=== PATIENT | male | born 1960 | race Caucasian/White ===

== ENCOUNTER 2020-07-31 22:10 | Emergency (ER) | payer OTHER ==
--- NOTE | 2020-07-31 22:17 | ED Physician Documentation ---
History of Present Illness - Stated complaint Stated Complaint: BACK PX/MALE - History obtained from History obtained from: Patient - Additonal information Additional information: Patient is a 60-year-old male presents with left-sided flank pain and dark urine. Reports he has a history of kidney stones denies any fevers or syncope. Review of Systems Constitutional: reports: Reviewed and negative Eyes: reports: Reviewed and negative Ears: reports: Reviewed and negative Nose: reports: Reviewed and negative Throat: reports: Reviewed and negative Cardiac: reports: Reviewed and negative Respiratory: reports: Reviewed and negative GI: reports: Reviewed and negative : reports: Other (left sided flank pain.) Skin: reports: Reviewed and negative Musculoskeletal: reports: Reviewed and negative Neurologic: reports: Reviewed and negative Psychiatric: reports: Reviewed and negative Endocrine: reports: Reviewed and negative Immunocompromised: reports: Reviewed and negative PD PAST MEDICAL HISTORY - Past Surgical History Past Surgical History: No - Present Medications Home Medications: Ambulatory Orders Medication Instructions Recorded Confirmed Butalb/Acetaminophen/Caffeine 1 each PO Q6HR PRN #10 capsule 04/12/15 [Fioricet 50-300-40 mg Capsule] Sumatriptan Inj [Imitrex Inj] 6 mg SQ DAILY PRN 04/12/15 04/12/15 Hydrocodone/Acetaminophen [[place] 1 each PO Q6HR PRN #14 tablet 08/01/20 5-325 Tablet] Ondansetron Odt [Zofran Odt] 4 mg TL Q6H PRN #10 tablet 08/01/20 Tamsulosin [Flomax] 0.4 mg PO DAILY 7 Days #7 capsule 08/01/20 - Allergies Allergies/Adverse Reactions: Allergies Allergy/AdvReac Type Severity Reaction Status Date / Time No Known Drug Allergies Allergy Verified 07/31/20 22:19 - Social History Does the pt smoke?: No Smoking Status: Never smoker Does the pt drink ETOH?: No Does the pt have substance abuse?: No - Immunizations Immunizations are current?: Yes - POLST Patient has POLST: No PD ED PE NORMAL - Vitals Vital signs reviewed: Yes - General General: Alert and oriented X 3, No acute distress, Well developed/nourished - HEENT HEENT: Atraumatic, PERRL, Moist mucous membranes - Neck Neck: Supple, no meningeal sign - Cardiac Cardiac: RRR, No murmur, Strong equal pulses - Respiratory Respiratory: No respiratory distress, Clear bilaterally - Abdomen Abdomen: Normal bowel sounds, Soft, Non tender, Non distended, No organomegaly, Other (No midline abdominal pulsatile mass) - Back Back: Other (Positive for left-sided CVA tenderness) - Derm Derm: Warm and dry - Extremities Extremities: No deformity - Neuro Neuro: Alert and oriented X 3, cytopathology technologist 2-12 intact, No motor deficit, No sensory deficit, Normal speech - Psych Psych: Normal mood, Normal affect Results - Vitals Vitals: Vital Signs - 24 hr 07/31/20 07/31/20 07/31/20 22:10 23:26 23:42 Temperature 36.3 C L 36.7 C Heart Rate 54 L 63 57 L Respiratory 18 16 16 Rate Blood Pressure 169/79 H 149/91 H 158/99 H O2 Saturation 98 96 96 08/01/20 08/01/20 08/01/20 00:50 01:10 02:08 Temperature 36.4 C L Heart Rate 73 66 77 Respiratory 16 16 16 Rate Blood Pressure 144/98 H 164/99 H 152/102 H O2 Saturation 95 95 95 08/01/20 08/01/20 02:56 03:15 Temperature 36.6 C 36.5 C Heart Rate 73 70 Respiratory 16 16 Rate Blood Pressure 139/100 H 127/78 O2 Saturation 94 97 Oxygen O2 Source Room air - Labs Labs: Laboratory Tests 07/31/20 07/31/20 07/31/20 22:26 22:30 22:30 WBC 8.9 RBC 5.27 Hgb 16.1 Hct 47.6 MCV 90.3 MCH 30.6 MCHC 33.8 RDW 13.2 Plt Count 174 MPV 10.8 Neut # (Auto) 4.4 Lymph # (Auto) 3.3 Story # (Auto) 0.9 Eos # (Auto) 0.2 Baso # (Auto) 0.1 Absolute Nucleated RBC 0.00 Nucleated RBC % 0.0 Sodium 139 Potassium 3.7 Chloride 101 Carbon Dioxide 28 Anion Gap 10.0 BUN 27 H Creatinine 1.1 Estimated GFR (MDRD) 68 L Glucose 111 H Lactic Acid Calcium 9.6 Total Bilirubin 0.6 AST 27 ALT 35 Alkaline Phosphatase 67 Total Protein 7.2 Albumin 4.4 Globulin 2.8 Albumin/Globulin Ratio 1.6 Lipase 36 Urine Color BROWN Urine Clarity CLOUDY Urine pH 6.5 Ur Specific [place] 1.025 Urine Protein 30 H Urine Glucose (UA) NEGATIVE Urine Ketones 40 H Urine Occult Blood LARGE H Urine Nitrite NEGATIVE Urine Bilirubin NEGATIVE Urine Urobilinogen 0.2 (NORMAL) Ur Leukocyte Esterase NEGATIVE Urine RBC TNTC H Urine WBC 4-5 Ur Squamous Epith Cells NONE SEEN Urine Bacteria Rare Urine Yeast PRESENT Ur Microscopic Review INDICATED Urine Culture Comments NOT INDICATED 07/31/20 22:51 WBC RBC Hgb Hct MCV MCH MCHC RDW Plt Count MPV Neut # (Auto) Lymph # (Auto) Story # (Auto) Eos # (Auto) Baso # (Auto) Absolute Nucleated RBC Nucleated RBC % Sodium Potassium Chloride Carbon Dioxide Anion Gap BUN Creatinine Estimated GFR (MDRD) Glucose Lactic Acid 0.9 Calcium Total Bilirubin AST ALT Alkaline Phosphatase Total Protein Albumin Globulin Albumin/Globulin Ratio Lipase Urine Color Urine Clarity Urine pH Ur Specific [place] Urine Protein Urine Glucose (UA) Urine Ketones Urine Occult Blood Urine Nitrite Urine Bilirubin Urine Urobilinogen Ur Leukocyte Esterase Urine RBC Urine WBC Ur Squamous Epith Cells Urine Bacteria Urine Yeast Ur Microscopic Review Urine Culture Comments PD MEDICAL DECISION MAKING - ED course Complexity details: reviewed old records, reviewed results, re-evaluated patient, considered differential (Kidney stone), d/w patient, d/w family ED course: 60-year-old male who presents with history exam consistent for ureterolithiasis imaging shows a 4.3 x 7.3 x 4.6 m stone distal to the left ureter just proximal to the UVJ. Final impression is distal left ureteric stone resulting in moderate left hydroureteronephrosis. Patient's pain is been controlled with IV analgesia antiemetics. He is afebrile with no signs of infection he is able to urinate without complications I did offer to transfer him to a facility with urology however the patient would like to be treated as an outpatient is given referral to urology and a primary care provider also given prepacks for antiemetics and analgesics as well as prescriptions for those and Flomax. Return for worsening pain fevers or any concerns. Departure - Departure Disposition: 01 Home, Self Care Clinical Impression: Kidney stone on left side, Ureterolithiasis Condition: Stable Instructions: ED Stone Renal W Colic Follow-Up: Ana Finn MD [Physician No Access] - Tomorrow Deborah Cabral PA-C [Primary Care Provider] - Tomorrow Prescriptions: Hydrocodone/Acetaminophen [[place] 5-325 Tablet] 1 each PO Q6HR PRN #14 tablet PRN Reason: Pain Tamsulosin [Flomax] 0.4 mg PO DAILY 7 Days #7 capsule Ondansetron Odt [Zofran Odt] 4 mg TL Q6H PRN #10 tablet PRN Reason: Nausea / Vomiting Comments: Hydrate well. Call the urologist and your primary care provider tomorrow. Take pain meds as needed. Discharge Date/Time: 08/01/20 03:26
[2020-07-31 22:30] LABS: BILIRUBIN,URINE NEGATIVE (NEGATIVE); GLUCOSE, URINE (UA) NEGATIVE (NEGATIVE); KETONES,URINE (UA) 40 mg/dL (NEGATIVE); LEUKOCYTE ESTERASE, URINE NEGATIVE (NEGATIVE); NITRITE,URINE NEGATIVE (NEGATIVE); OCCULT BLOOD,URINE LARGE (NEGATIVE); PH,URINE 6.5 PH (5.0-7.5); PROTEIN,URINE 30 mg/dL (NEGATIVE); UROBILINOGEN,URINE 0.2 (NORMAL) E.U./dL (NORMAL)
[2020-07-31 22:34] LABS: BASOPHILS # (AUTO) 0.1 10^3/uL (0.0-0.1); BASOPHILS % (AUTO) 0.6 %; EOSINOPHILS # (AUTO) 0.2 10^3/uL (0.0-0.7); EOSINOPHILS % (AUTO) 2.5 %; HGB - HEMOGLOBIN 16.1 g/dL (14.0-18.0); LYMPHOCYTES # (AUTO) 3.3 10^3/uL (1.5-3.5); LYMPHOCYTES % (AUTO) 37.2 %; MEAN CORPUSCULAR HEMOGLOBIN 30.6 pg (27.0-31.0); MEAN CORPUSCULAR HGB CONC 33.8 g/dL (32.0-36.0); MEAN CORPUSCULAR VOLUME 90.3 fL (80.0-94.0); MEAN PLATELET VOLUME 10.8 fL (7.4-11.4); MONOCYTES # (AUTO) 0.9 10^3/uL (0.0-1.0); MONOCYTES % (AUTO) 9.6 %; NEUTROPHILS # (AUTO) 4.4 10^3/uL (1.5-6.6); NEUTROPHILS % (AUTO) 49.6 %; PLT - PLATELET COUNT 174 10^3/uL (130-450); RED BLOOD COUNT 5.27 10^6/uL (4.70-6.10); RED CELL DISTRIBUTION WIDTH 13.2 % (12.0-15.0); WHITE BLOOD COUNT 8.9 x10^3/uL (4.8-10.8)
[2020-07-31 22:39] LABS: BACTERIA,URINE Rare /HPF (None Seen); CLARITY,URINE CLOUDY (CLEAR); RBC,URINE TNTC /HPF (0-5); SQUAMOUS EPITHELIAL CELL,UR NONE SEEN (<= Few); YEAST,URINE PRESENT
[2020-07-31] MEDS ORDERED: SODIUM CHLORIDE 0.9% 1,000 ML IV STA (22:46)
[2020-07-31] MEDS ORDERED: KETOROLAC 30 MG/ML VIAL IVP STA (22:46)
[2020-07-31] MEDS ORDERED: HYDROmorphone 0.5 MG/0.5 ML SYRINGE IVP STA (22:46)
[2020-07-31] MEDS ORDERED: ONDANSETRON 4 MG/2 ML VIAL IVP STA (22:46)
[2020-07-31 22:47] LABS: ALBUMIN 4.4 g/dL (3.2-5.5); ALBUMIN/GLOBULIN RATIO 1.6 (1.0-2.2); BILIRUBIN,TOTAL 0.6 mg/dL (0.2-1.0); CALCIUM 9.6 mg/dL (8.5-10.3); CREATININE 1.1 mg/dL (0.6-1.2); TOTAL PROTEIN 7.2 g/dL (6.7-8.2)
[2020-08-01] MEDS ORDERED: HYDROmorphone 0.5 MG/0.5 ML SYRINGE IVP STA (01:06)
[2020-08-01] MEDS ORDERED: ONDANSETRON 4 MG/2 ML VIAL IVP STA (01:06)
[2020-08-01] MEDS ORDERED: HYDROcod/ACET 5/325 Prepack 4 PO STA (03:06)
[2020-08-01] MEDS ORDERED: ONDANSETRON ODT 4 MG Prepack 2 TL PRN (03:12)
[2020-08-01 03:22] VITALS: BP 127/78
[2020-08-01] MEDS ORDERED: PROMETHAZINE 25 MG/1 ML VIAL IM STA (03:24)
--- NOTE | 2020-08-01 10:36 | CT Report ---
PROCEDURE: Abdomen/Pelvis WO INDICATIONS: left flank pain TECHNIQUE: Noncontrast 5 mm thick sections acquired from the diaphragms to the symphysis. 5 mm coronal and sagi ttal reformats were then performed. For radiation dose reduction, the following was used: automated exposure control, adjustment of mA and/or kV according to patient size. COMPARISON: None. FINDINGS: Image quality: Excellent. ABDOMEN: Lung bases: Mild dependent atelectasis is seen, right worse than left. Heart size is normal. A small hiatal hernia is incidentally noted. Solid organs: Liver and spleen are normal in size. Gallbladder wall does not appear thickened. P ancreas is normal in contours. No adrenal nodules. There is an obstructing stone seen within the left distal ureter, near the ureterovesicular junction, as on series 3 image 137 and on series 6 image 63, which measures 6 mm craniocaudal. There is associ ated moderate left-sided hydroureter and hydronephrosis. Mild left-sided perinephric fat stranding is seen. Within the right kidney, there is a nonobstructing 1 mm stone seen. No definite left-sided nonobstruc ting stones are seen. Along the posterior aspect of the right kidney laterally, there is a 2.5 cm simple appearing cyst see n. The kidneys demonstrate normal size. Peritoneum and bowel: Unenhanced bowel loops demonstrate normal wall thickness and caliber. No free fluid or air. Nodes and vessels: No retroperitoneal or mesenteric adenopathy by size criteria. Aorta and inferior vena cava are normal in caliber. Miscellaneous: No ventral hernias. PELVIS: Genitourinary: Bladder wall thickness is normal. Miscellaneous: No inguinal hernias or adenopathy. Bones: No suspicious bony lesions. No vertebral body compression fractures. There is focal degener ative change at L5-S1. Milder degenerative changes are seen elsewhere. IMPRESSION: There is a 6 mm obstructing stone seen within the distal left ureter, with associated moderate left-s ided hydroureter and hydronephrosis. Mild left-sided perinephric fat stranding is seen. 1 mm nonobstructing right-sided kidney stone. Incidental note is made of: Small hiatal hernia Simple appearing right renal cyst Focal degenerative change at L5-S1. Note: No significant discrepancy from the preliminary report. Reviewed by: Miguelangel Anders MD on 08/01/2020 9:35 AM TREY Approved by: Miguelangel Anders MD on 08/01/2020 9:35 AM TREY Station ID: [id number]
== END 2020-08-01 03:26 | disposition home or self-care (01) ==
LOC: ED 22:10
DX: N13.2 Hydronephrosis with renal and ureteral calculous obstruction (principal)
CPT/HCPCS: 36415; 74176; 80053; 81001; 83605; 83690; 85025; 96361; 96374; 96375; 96376; 99283; 99285; J1170; 81003; 87086

== ENCOUNTER 2020-09-25 01:25 | Emergency (ER) | payer OTHER ==
[2020-09-25] MEDS ORDERED: KETOROLAC 30 MG/ML VIAL IVP STA (02:34)
[2020-09-25] MEDS ORDERED: SODIUM CHLORIDE 0.9% 1,000 ML IV STA (02:34)
[2020-09-25 02:49] LABS: BASOPHILS % (AUTO) 0.5 %; EOSINOPHILS # (AUTO) 0.2 10^3/uL (0.0-0.7); EOSINOPHILS % (AUTO) 2.1 %; HGB - HEMOGLOBIN 15.3 g/dL (14.0-18.0); LYMPHOCYTES # (AUTO) 2.9 10^3/uL (1.5-3.5); LYMPHOCYTES % (AUTO) 36.3 %; MEAN CORPUSCULAR HEMOGLOBIN 30.3 pg (27.0-31.0); MEAN CORPUSCULAR HGB CONC 33.5 g/dL (32.0-36.0); MEAN CORPUSCULAR VOLUME 90.5 fL (80.0-94.0); MEAN PLATELET VOLUME 11.3 fL (7.4-11.4); MONOCYTES # (AUTO) 0.9 10^3/uL (0.0-1.0); MONOCYTES % (AUTO) 11.7 %; NEUTROPHILS # (AUTO) 3.9 10^3/uL (1.5-6.6); PLT - PLATELET COUNT 181 10^3/uL (130-450); RED BLOOD COUNT 5.05 10^6/uL (4.70-6.10); RED CELL DISTRIBUTION WIDTH 14.3 % (12.0-15.0)
[2020-09-25 03:24] LABS: ALBUMIN 4.2 g/dL (3.2-5.5); ALBUMIN/GLOBULIN RATIO 1.5 (1.0-2.2); BILIRUBIN,TOTAL 0.9 mg/dL (0.2-1.0); CREATININE 1.3 mg/dL (0.6-1.2)
[2020-09-25 03:41] LABS: CALCIUM 9.7 mg/dL (8.5-10.3)
[2020-09-25] MEDS ORDERED: LACTATED RINGERS 1,000 ML IV ONE (03:49)
[2020-09-25] MEDS ORDERED: IOVERSOL 320 100 ML VIAL IVP ONE (04:05)
[2020-09-25] MEDS ORDERED: MORPHINE 2 MG/ML CARPUJECT IVP STA (05:05)
[2020-09-25] MEDS ORDERED: ONDANSETRON 4 MG/2 ML VIAL IVP STA (05:05)
--- NOTE | 2020-09-25 05:08 | ED Physician Documentation ---
History of Present Illness - Stated complaint Stated Complaint: KIDNEY STONE SX - Chief complaint Chief Complaint: Abd Pain - History obtained from History obtained from: Patient - Additonal information Additional information: 60-year-old man with past medical history of migraine headaches, kidney stones in the past, presents with left flank pain radiating to lower abdomen since 11 PM last night. Sharp, intermittent, severe, worse with staying still. Denies fevers, urinary symptoms, vomiting or diarrhea. Some mild nausea associated. This does feel like his prior kidney stones. Review of Systems Ten Systems: 10 systems reviewed and negative Constitutional: denies: Fever, Chills GI: reports: Abdominal Pain, Nausea Musculoskeletal: reports: Back pain PD PAST MEDICAL HISTORY - Past Surgical History Past Surgical History: No - Present Medications Home Medications: Ambulatory Orders Medication Instructions Recorded Confirmed Butalb/Acetaminophen/Caffeine 1 each PO Q6HR PRN #10 capsule 04/12/15 [Fioricet 50-300-40 mg Capsule] Sumatriptan Inj [Imitrex Inj] 6 mg SQ DAILY PRN 04/12/15 04/12/15 Hydrocodone/Acetaminophen [[place] 1 each PO Q6HR PRN #14 tablet 08/01/20 5-325 Tablet] Ondansetron Odt [Zofran Odt] 4 mg TL Q6H PRN #10 tablet 08/01/20 Tamsulosin [Flomax] 0.4 mg PO DAILY 7 Days #7 capsule 08/01/20 Tamsulosin HCl [Flomax] 0.4 mg PO QDAC 14 Days #14 09/25/20 cap.er.24h - Allergies Allergies/Adverse Reactions: Allergies Allergy/AdvReac Type Severity Reaction Status Date / Time No Known Drug Allergies Allergy Verified 09/25/20 02:34 - Social History Does the pt smoke?: No Smoking Status: Never smoker Does the pt drink ETOH?: No Does the pt have substance abuse?: No - Immunizations Immunizations are current?: Yes - POLST Patient has POLST: No PD ED PE NORMAL - Vitals Vital signs reviewed: Yes - General General: Alert and oriented X 3 - HEENT HEENT: Atraumatic, PERRL, EOMI - Neck Neck: Supple, no meningeal sign - Cardiac Cardiac: RRR - Respiratory Respiratory: No respiratory distress, Clear bilaterally - Abdomen Abdomen: Other (discomfort to palpation diffusely) - Male Male : Deferred - Rectal Rectal: Deferred - Back Back: Other (+L CVA ttp) - Derm Derm: Normal color, Warm and dry - Extremities Extremities: No deformity - Neuro Neuro: Alert and oriented X 3 - Psych Psych: Normal mood, Normal affect Results - Vitals Vitals: Vital Signs - 24 hr 09/25/20 09/25/20 09/25/20 01:36 03:56 05:00 Temperature 36.3 C L Heart Rate 78 80 88 Respiratory 20 18 16 Rate Blood Pressure 167/96 H 154/74 H 164/94 H O2 Saturation 100 100 99 Oxygen O2 Source Room air - Labs Labs: Laboratory Tests 09/25/20 09/25/20 09/25/20 02:34 02:34 05:05 WBC 8.0 RBC 5.05 Hgb 15.3 Hct 45.7 MCV 90.5 MCH 30.3 MCHC 33.5 RDW 14.3 Plt Count 181 MPV 11.3 Neut # (Auto) 3.9 Lymph # (Auto) 2.9 [place] # (Auto) 0.9 Eos # (Auto) 0.2 Baso # (Auto) 0.0 Absolute Nucleated RBC 0.00 Nucleated RBC % 0.0 Sodium 139 Potassium 3.5 Chloride 103 Carbon Dioxide 23 Anion Gap 13.0 BUN 22 H Creatinine 1.3 H Estimated GFR (MDRD) 56 L Glucose 124 H Calcium 9.7 Total Bilirubin 0.9 AST 46 H ALT 61 H Alkaline Phosphatase 67 Total Protein 7.0 Albumin 4.2 Globulin 2.8 Albumin/Globulin Ratio 1.5 Lipase 31 Urine Color YELLOW Urine Clarity CLEAR Urine pH 6.0 Ur Specific [place] 1.020 Urine Protein NEGATIVE Urine Glucose (UA) NEGATIVE Urine Ketones 40 H Urine Occult Blood TRACE-INTA Urine Nitrite NEGATIVE Urine Bilirubin NEGATIVE Urine Urobilinogen 0.2 (NORMAL) Ur Leukocyte Esterase NEGATIVE Ur Microscopic Review NOT INDICATED Urine Culture Comments NOT INDICATED PD MEDICAL DECISION MAKING - ED course Complexity details: re-evaluated patient, d/w patient ED course: 60-year-old man Presents with kidney stones with moderate hydronephrosis, mild RONAL, no urinary tract infection on urinalysis. Discussed results with patient who would prefer to follow-up outpatient urology and take [id number] medicine for pain at home. He understands the need for hydration and urgent follow-up since he is unlikely to pass the stone on his own. Strict return precautions given. Departure - Departure Disposition: 01 Home, Self Care Clinical Impression: Hydronephrosis, RONAL (acute kidney injury), Kidney stone on left side Condition: Good Instructions: Hydronephrosis Ch, Kidney Stones Prescriptions: Tamsulosin HCl [Flomax] 0.4 mg PO QDAC 14 Days #14 cap.er.24h Comments: You have been seen in the emergency department for kidney stones. Your CAT scan showed moderate hydronephrosis of the left kidney which means that you are experiencing back up of fluid due to the obstructing kidney stone on the left ureter. Your urinalysis showed no signs of infection. You also have very mild acute kidney injury on your bloodwork, that will improve if you hydrate and follow-up with urology for kidney stone removal. It is very important to hydrate a lot. Make an appointment Sunday to be evaluated for kidney stone removal. Take Tylenol/acetaminophen 650 mg every 6 hours as needed for pain, alternating with ibuprofen/advil/motrin 600 mg as needed every 6 hours for pain. Return to the ED for any new or worsening symptoms. [facility] [place], [place] Closed ? Opens 8AM Mon
[2020-09-25 05:47] LABS: BILIRUBIN,URINE NEGATIVE (NEGATIVE); GLUCOSE, URINE (UA) NEGATIVE (NEGATIVE); KETONES,URINE (UA) 40 mg/dL (NEGATIVE); LEUKOCYTE ESTERASE, URINE NEGATIVE (NEGATIVE); NITRITE,URINE NEGATIVE (NEGATIVE); OCCULT BLOOD,URINE TRACE-INTA (NEGATIVE); PROTEIN,URINE NEGATIVE (NEGATIVE); UROBILINOGEN,URINE 0.2 (NORMAL) E.U./dL (NORMAL)
[2020-09-25 05:49] LABS: CLARITY,URINE CLEAR (CLEAR)
[2020-09-25 06:04] VITALS: BP 155/84
--- NOTE | 2020-09-25 09:45 | CT Report ---
PROCEDURE: Abdomen/Pelvis W INDICATIONS: abdominal pain CONTRAST: IV CONTRAST: Optiray 320 ml: 100 PO CONTRAST: *NO PO CONTRAST TECHNIQUE: After the administration of nonionic IV contrast, 5 mm thick sections acquired from the diaphragms to the symphysis. 5 mm thick coronal and sagittal reformats were acquired. For radiation dose reducti on, the following was used: automated exposure control, adjustment of mA and/or kV according to shubham ent size. COMPARISON: 08/01/2020 FINDINGS: Image quality: Excellent. ABDOMEN: Lung bases: Lung bases are clear. Heart size is normal. A small hiatal hernia is incidentally note d. Solid organs: Liver and spleen are normal in size and enhancement. Gallbladder wall does not appear thickened. Biliary system is non dilated. Pancreas enhances normally. No adrenal nodules. Kidneys demonstrate normal size and enhancement. Simple appearing bilateral renal cysts are seen. 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 There is at least moderate left-sided hydr onephrosis. Left-sided perinephric stranding can be seen. At the left ureterovesicular junction, ther e is an obstructing stone seen and measures 6 mm. Peritoneum and bowel: Bowel loops demonstrate normal wall thickness and caliber. No free fluid or a ir. A normal appendix is incidentally noted. Nodes and vessels: No retroperitoneal or mesenteric adenopathy by size criteria. Aorta and inferior vena cava are normal in size. Miscellaneous: A mild fat-containing periumbilical hernia is seen. PELVIS: Genitourinary: Bladder wall thickness is normal. Miscellaneous: No inguinal adenopathy. Bilateral fat-containing inguinal hernias are seen, left wors e than right. Bones: No suspicious bony lesions. No vertebral body compression fractures. Focal L5-S1 degenerativ e change is seen. Milder degenerative changes are seen elsewhere. IMPRESSION: The previously seen distal left ureteral stone has migrated more distally and is now see n at the left ureterovesicular junction. There is moderate associated left-sided hydroureter and hydr onephrosis, perinephric fat stranding. 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 Incidental note is made of: Small hiatal hernia Simple appearing bilateral renal cysts Mild fat-containing periumbilical hernia Normal appendix Focal L5-S1 degenerative change Fat-containing inguinal hernias Note: No significant discrepancy from the preliminary report. Reviewed by: Miguelangel Anders MD on 09/25/2020 8:44 AM AKST Approved by: Miguelangel Anders MD on 09/25/2020 8:44 AM AKST Station ID: [id number]
== END 2020-09-25 06:03 | disposition home or self-care (01) ==
LOC: ED 01:25
DX: N13.2 Hydronephrosis with renal and ureteral calculous obstruction (principal); N17.9 Acute kidney failure, unspecified
CPT/HCPCS: 36415; 74177; 80053; 81003; 83690; 85025; 96374; 96375; 99284; 99285; J7120; Q9967; 81001; 87086

== ENCOUNTER 2021-08-11 21:40 | Outpatient (CLI) | payer OTHER | END 2021-08-11 21:41 | disposition critical access hospital (66) | LOC: EMS 21:40 | DX: R55 Syncope and collapse (principal); R51.9 Headache, unspecified | CPT/HCPCS: A0425; A0429 ==

== ENCOUNTER 2021-08-11 22:00 | Emergency (ER) | payer OTHER ==
--- NOTE | 2021-08-11 22:15 | ED Physician Documentation ---
PD HPI SYNCOPE - Stated complaint Stated Complaint: SYNCOPE - Chief complaint Chief Complaint: Neuro - History obtained from History obtained from: Patient - History of Present Illness Witnessed: Witnessed ( heard him fall and saw him not moving, eyes rolled back, but then roused in 20-30 seconds. Tender back of head. No other pains.) Preceding symptoms: Light headed. No: Headache, Chest pain, Abdominal pain Associated symptoms: No: Chest pain, Nausea / vomiting, Abdominal pain Contributing factors: Just stood up (he was in warm/hot bath and got up to walk down [place]. He felt lightheaded but thought he could get to other room. He then remembers awakening on floor, by his side. Bump on back of head. No chest/abd pain.). No: Recent med change, Decreased PO intake, Noxious stimulae Injury occurred: Head injury (bump back of head with fainting/fall. He had some vinyl jade in box fall from shelf and hit front of head earlier, but no residual headache nor lightheaded from that, per patient.) Similar symptoms before: Has not had sx before Review of Systems Constitutional: denies: Fever, Chills Nose: denies: Rhinorrhea / runny nose, Congestion Throat: denies: Sore throat Respiratory: denies: Cough GI: denies: Nausea, Vomiting, Diarrhea, Bloody / black stool Skin: denies: Abrasion (s), Laceration (s) Musculoskeletal: denies: Neck pain, Back pain Neurologic: denies: Focal weakness, Numbness, Altered mental status (normal mentation once awoke.) PD PAST MEDICAL HISTORY - Past Surgical History Past Surgical History: No - Present Medications Home Medications: Ambulatory Orders Medication Instructions Recorded Confirmed SUMAtriptan [Imitrex] 50 mg PO PRN 08/11/21 - Allergies Allergies/Adverse Reactions: Allergies Allergy/AdvReac Type Severity Reaction Status Date / Time No Known Drug Allergies Allergy Verified 08/11/21 22:11 - Social History Does the pt smoke?: No Smoking Status: Never smoker Does the pt drink ETOH?: No Does the pt have substance abuse?: No - Immunizations Immunizations are current?: Yes - POLST Patient has POLST: No PD ED PE NORMAL - Vitals Vital signs reviewed: Yes - General General: Alert and oriented X 3, No acute distress, Well developed/nourished - HEENT HEENT: PERRL, EOMI, Pharynx benign, Other (upper occiput with mild swelling and tender. No lacs. ) - Neck Neck: Supple, no meningeal sign, No adenopathy - Cardiac Cardiac: RRR, No murmur - Respiratory Respiratory: Clear bilaterally - Abdomen Abdomen: Soft, Non tender - Back Back: No spinal TTP - Derm Derm: Normal color, Warm and dry - Extremities Extremities: Normal ROM s pain - Neuro Neuro: Alert and oriented X 3, supervisor feed house 2-12 intact, No motor deficit, No sensory deficit, Normal speech, Other Results - Vitals Vitals: Vital Signs - 24 hr 08/11/21 08/11/21 08/11/21 22:08 22:23 23:18 Temperature 36.6 C Heart Rate 68 63 67 Respiratory 16 22 Rate Blood Pressure 138/89 H 138/89 H 128/78 O2 Saturation 98 97 08/11/21 23:53 Temperature Heart Rate 68 Respiratory Rate Blood Pressure 116/80 O2 Saturation 97 Oxygen O2 Source Room air - EKG (time done) 22:14 Rate: Rate (enter#) (66) Rhythm: NSR [place]: Normal Intervals: Normal GA QRS: Normal Ischemia: Normal ST segments. No: ST elevation c/w ischemia, ST depression Compare to prior EKG: Old EKG unavailable - Labs Labs: Laboratory Tests 08/11/21 08/11/21 22:53 22:53 WBC 8.5 RBC 5.24 Hgb 15.7 Hct 47.5 MCV 90.6 MCH 30.0 MCHC 33.1 RDW 13.2 Plt Count 157 MPV 9.9 Neut # (Auto) 5.5 Lymph # (Auto) 1.9 [place] # (Auto) 0.9 Eos # (Auto) 0.1 Baso # (Auto) 0.0 Absolute Nucleated RBC 0.00 Nucleated RBC % 0.0 Sodium 137 Potassium 3.8 Chloride 100 L Carbon Dioxide 25 Anion Gap 12.0 BUN 21 H Creatinine 1.1 Estimated GFR (MDRD) 68 L Glucose 101 H Calcium 9.2 Total Bilirubin 0.8 AST 26 ALT 28 Alkaline Phosphatase 80 Total Protein 6.8 Albumin 4.2 Globulin 2.6 Albumin/Globulin Ratio 1.6 Lipase 35 - Rads (name of study) head CT Radiology: Prelim report reviewed (normal), See rad report PD MEDICAL DECISION MAKING - ED course Complexity details: considered differential (seems like vasovagal from being in hot bath, then getting up. Normal ECG and BP. Had mild head contusion earlier and struck head when fainted so got CT. Labs also good. ), d/w patient Departure - Departure Disposition: 01 Home, Self Care Clinical Impression: Postural syncope Condition: Stable Record reviewed to determine appropriate education?: Yes Instructions: ED Syncope Vasovagal Comments: Your head CT scan is normal without any signs of bleeding or swelling or fracture. You will likely have some headache and may be a little off on concentration and coordination for a day or 2 from hitting your head. Keep that in mind with activity for the next couple of days. Tylenol or ibuprofen if needed for pains. Your EKG and blood pressure and heart monitor rhythm are normal. Basic blood count and electrolytes and blood sugar are good as well. It would not be unusual for a fainting episode after being in a hot bath. The warmth can cause blood flow to channel into your skin and away from the core areas of organs heart and brain. With standing up then there is a brief drop of the blood flow to the head causing the fainting. Recheck if you have persistence or repeated episodes of lightheadedness or near fainting or fainting. Otherwise as a isolated event no further work-up is necessarily needed. Discharge Date/Time: 08/12/21 00:08
[2021-08-11] MEDS ORDERED: ACETAMINOPHEN 325 MG TABLET PO STA (22:47)
[2021-08-11 22:57] LABS: BASOPHILS % (AUTO) 0.5 %; EOSINOPHILS # (AUTO) 0.1 10^3/uL (0.0-0.7); EOSINOPHILS % (AUTO) 1.4 %; HCT - HEMATOCRIT 47.5 % (42.0-52.0); HGB - HEMOGLOBIN 15.7 g/dL (14.0-18.0); LYMPHOCYTES # (AUTO) 1.9 10^3/uL (1.5-3.5); LYMPHOCYTES % (AUTO) 22.2 %; MEAN CORPUSCULAR HGB CONC 33.1 g/dL (32.0-36.0); MEAN CORPUSCULAR VOLUME 90.6 fL (80.0-94.0); MEAN PLATELET VOLUME 9.9 fL (7.4-11.4); MONOCYTES # (AUTO) 0.9 10^3/uL (0.0-1.0); MONOCYTES % (AUTO) 10.4 %; NEUTROPHILS # (AUTO) 5.5 10^3/uL (1.5-6.6); PLT - PLATELET COUNT 157 10^3/uL (130-450); RED BLOOD COUNT 5.24 10^6/uL (4.70-6.10); RED CELL DISTRIBUTION WIDTH 13.2 % (12.0-15.0); WHITE BLOOD COUNT 8.5 x10^3/uL (4.8-10.8)
[2021-08-11 23:13] LABS: ALBUMIN 4.2 g/dL (3.2-5.5); ALBUMIN/GLOBULIN RATIO 1.6 (1.0-2.2); BILIRUBIN,TOTAL 0.8 mg/dL (0.2-1.0); CALCIUM 9.2 mg/dL (8.5-10.3); CREATININE 1.1 mg/dL (0.6-1.2); POTASSIUM 3.8 mmol/L (3.5-5.0); TOTAL PROTEIN 6.8 g/dL (6.7-8.2)
--- NOTE | 2021-08-11 23:32 | CT Report ---
PROCEDURE: HEAD WO INDICATIONS: syncope and struck head/headache TECHNIQUE: Noncontrast 4.5 mm thick angled axial sections acquired from the foramen magnum to the vertex. For r adiation dose reduction, the following was used: automated exposure control, adjustment of mA and/or kV according to patient size. COMPARISON: None. FINDINGS: Image quality: Excellent. CSF spaces: Basal cisterns are patent. No extra-axial fluid collections. Ventricles are normal in size and shape. Brain: No midline shift. No intracranial masses or hemorrhage. Lee-white matter interface is norm al. Age-related senescent changes with diffuse cortical volume loss. Minimal atherosclerotic calcifi cations of the intracranial segments of the internal carotid arteries. Skull and face: Calvarium and visualized facial bones are intact, without suspicious lesions. Sinuses: Visualized sinuses and mastoids are clear. IMPRESSION: CT head without acute intracranial abnormalities. No acute calvarial fractures. Reviewed by: Supa Joyce MD on 08/11/2021 11:31 PM PDT Approved by: Supa Joyce MD on 08/11/2021 11:31 PM PDT Station ID: [id number]
[2021-08-11 23:54] VITALS: BP 116/80
== END 2021-08-12 00:08 | disposition home or self-care (01) ==
LOC: EDUNIT# → ED 22:00
DX: R55 Syncope and collapse (principal); S00.03XA Contusion of scalp, initial encounter; W18.39XA Other fall on same level, initial encounter; Y92.002 Bathroom of unspecified non-institutional (private) residence as the place of occurrence of the external cause
CPT/HCPCS: 36415; 70450; 80053; 83690; 85025; 93005; 99284; A9270

== ENCOUNTER 2022-07-19 07:15 | Outpatient (CLI) | payer OTHER ==
--- NOTE | 2022-07-19 09:03 | MRI Report ---
PROCEDURE: Brain W/O INDICATIONS: HEADACHE TECHNIQUE: Noncontrast axial T1 spin echo, axial T2 fast spin echo, sagittal and axial FLAIR, coronal T2 fast sp in echo, axial gradient echo, axial diffusion and ADC through the brain. COMPARISON: CT head dated 08/11/2021. FINDINGS: Image quality: Excellent. CSF Spaces: Basal cisterns are patent. No extra-axial fluid collections. Ventricles are normal in size and shape. Brain: No intracranial masses or hemorrhage. Lee/white matter interface is normal. Brainstem appe ars normal. Diffusion-weighted images demonstrate no acute ischemic insult. No chronic ischemic ins ults. Normal intravascular flow voids are present. Skull and face: Calvarium has normal marrow signal. Orbits appear normal. Sinuses: Sinuses and mastoids are clear. IMPRESSION: Unremarkable brain MRI. No evidence of acute intracranial process. Normal brain parenchyma. Reviewed by: Ralph Suh MD on 07/19/2022 9:02 AM PDT Approved by: Ralph Suh MD on 07/19/2022 9:02 AM PDT Station ID: [id number]
--- NOTE | 2022-07-19 09:10 | MRI Report ---
PROCEDURE: Cervical Spine W/O INDICATIONS: HEADACHE TECHNIQUE: Noncontrast sagittal T1 spin echo and T2 fast spin echo, sagittal STIR, foraminal oblique sagittal T2 fast spin echo, and axial gradient echo or T2 fast spin echo through the cervical spine. COMPARISON: None. FINDINGS: Image quality: Excellent. Alignment and Curvature: There is normal bony alignment. Bone Marrow: Marrow demonstrates normal overall signal. Spinal Cord: Visualized spinal cord has normal size and signal. No cerebellar tonsillar herniation. Paraspinous Soft Tissues: No paravertebral masses. Prevertebral soft tissues are normal in thicknes s. C2-C3: No canal stenosis or foraminal stenosis. C3-C4: No canal stenosis or foraminal stenosis. C4-C5: Disc bulge. Bilateral uncovertebral joint hypertrophy. Mild bilateral facet hypertrophy. AP d iameter of the canal is 11.6 mm. Moderate right foraminal narrowing with flattening deformity on the exiting right C5 nerve root. Mild to moderate left foraminal narrowing. C5-C6: Disc bulge. AP diameter of the canal is 10.9 mm. Bilateral uncovertebral joint hypertrophy. B ilateral facet hypertrophy. Severe bilateral foraminal narrowing with injection on the bilateral exit ing C6 nerve roots. C6-C7: Disc bulge. No significant central canal stenosis. Bilateral uncovertebral joint hypertrophy. Bilateral facet hypertrophy. Severe right and moderate to severe left foraminal narrowing with impin gement on the bilateral exiting C7 nerve roots. C7-T1: No canal stenosis. Bilateral facet hypertrophy. Mild to moderate bilateral foraminal narrowin g. IMPRESSION: 1. Multilevel cervical spondylitic change with multilevel uncovertebral joint hypertrophy and multile jose miguel facet hypertrophy. 2. No central canal stenosis. 3. There is severe bilateral foraminal narrowing at C5-C6. There is severe right and moderate to zane re left foraminal narrowing at C6-C7. There is foraminal impingement on the exiting nerve roots at th marija levels. Reviewed by: Ralph Suh MD on 07/19/2022 9:09 AM PDT Approved by: Ralph Suh MD on 07/19/2022 9:09 AM PDT Station ID: [id number]
== END 2022-07-19 07:16 | disposition home or self-care (01) ==
LOC: DI 07:15
PROVIDERS: ATTEND Student in an Organized Health Care Education/Training Program
DX: R51.9 Headache, unspecified (principal); M47.812 Spondylosis without myelopathy or radiculopathy, cervical region; M48.02 Spinal stenosis, cervical region; M50.321 Other cervical disc degeneration at C4-C5 level

== ENCOUNTER 2023-10-25 07:56 | Outpatient (CLI) | payer MEDICARE, OTHER ==
[2023-10-25 12:22] LABS: HCT - HEMATOCRIT 50.7 % (42.0-52.0); HGB - HEMOGLOBIN 16.9 g/dL (14.0-18.0); MEAN CORPUSCULAR HEMOGLOBIN 30.3 pg (27.0-31.0); MEAN CORPUSCULAR HGB CONC 33.3 g/dL (32.0-36.0); MEAN CORPUSCULAR VOLUME 90.9 fL (80.0-94.0); MEAN PLATELET VOLUME 10.7 fL (7.4-11.4); RED BLOOD COUNT 5.58 10^6/uL (4.70-6.10); RED CELL DISTRIBUTION WIDTH 13.1 % (12.0-15.0); WHITE BLOOD COUNT 6.9 x10^3/uL (4.8-10.8)
[2023-10-25 12:39] LABS: ALBUMIN 4.3 g/dL (3.2-5.5); ALBUMIN/GLOBULIN RATIO 1.5 (1.0-2.2); ALKALINE PHOSPHATASE 75 IU/L (42-121); ALT ALANINE AMINOTRANSFERASE 24 IU/L (10-60); AST ASPARTATE AMINOTRANSFERASE 19 IU/L (10-42); BILIRUBIN,TOTAL 0.5 mg/dL (0.2-1.0); BUN - BLOOD UREA NITROGEN 19 mg/dL (6-20); CALCIUM 9.6 mg/dL (8.5-10.3); CARBON DIOXIDE - CO2 31 mmol/L (21-32); CHLORIDE 104 mmol/L (101-111); CHOL/HDL RATIO 5.3 (<5.0); CHOLESTEROL 222 mg/dL; CREATININE 1.1 mg/dL (0.6-1.3); GFR - MDRD 67 (>89); GLUCOSE 101 mg/dL (74-104); HDL CHOLESTEROL 42 mg/dL; LDL CHOLESTEROL,CALCULATED 157 mg/dL; LDL/HDL RATIO 3.7 (<3.6); POTASSIUM 4.5 mmol/L (3.5-4.5); SODIUM 138 mmol/L (135-145); TOTAL PROTEIN 7.1 g/dL (6.4-8.9); TRIGLYCERIDES 115 mg/dL (48-352); VLDL CHOLESTEROL 23 mg/dL
[2023-10-25 12:47] LABS: ESTIMATED AVERAGE GLUCOSE 108 mg/dL (70-100); HEMOGLOBIN A1c% 5.4 % (4.27-6.07)
== END 2023-10-25 07:57 | disposition home or self-care (01) ==
LOC: LAB.N 07:56
PROVIDERS: ATTEND Family Medicine
DX: I10 Essential (primary) hypertension (principal)
CPT/HCPCS: 36415; 80053; 80061; 83036; 83721; 85027